=== PATIENT | female | born 1965 | race Caucasian/White ===

== ENCOUNTER → 2019-04-07 | Outpatient (CLI) | payer OTHER ==
[~2019-04-07] MED LIST: 0.9 % SODIUM CHLORIDE 10 ML VIAL ONE; ALPR0.254 PO; AMIT25TA PO; CYCL-331 PO; DULO30CA2 PO; IOHEXOL 300 MG/ML 50 ML VIAL. ONE; LIDOCAINE 1% PF 30 ML VIAL. ONE; OMEP20TA8 PO; ONDA4TAB7 PO; OXYC20TA35 PO; OXYC5TAB4 PO; QUET25TA5 PO; RANI300T PO; methylPREDNISolone ACETATE 80 MG/ML VIAL. ONE
[2019-04-07 13:22] VITALS: BP 105/80
== END ==
LOC: SURG 12:00
PROVIDERS: ATTEND Anesthesiology Pain Medicine
DX: M54.16 Radiculopathy, lumbar region (principal); K21.9 Gastro-esophageal reflux disease without esophagitis; E78.00 Pure hypercholesterolemia, unspecified; G43.909 Migraine, unspecified, not intractable, without status migrainosus; Z87.39 Personal history of other diseases of the musculoskeletal system and connective tissue; Z98.890 Other specified postprocedural states
CPT/HCPCS: 62323; J1040; J2001; Q9967